=== PATIENT | male | born 1995 | race Caucasian/White ===

== ENCOUNTER 2018-11-12 19:33 | Emergency (ER) | payer OTHER, SELFPAY ==
[2018-11-12 19:34] VITALS: BP 115/71; PULSE 80; RESP 16; TEMP 37.9; O2SAT 99; BMI 22.4
--- NOTE | 2018-11-12 19:47 | EKG12_ITS ---
Test Reason : SOB Blood Pressure : / mmHG Vent. Rate : 066 BPM Atrial Rate : 066 BPM P-R Int : 166 ms QRS Dur : 110 ms QT Int : 386 ms P-R-T Axes : 059 081 056 degrees QTc Int : 404 ms Normal sinus rhythm with sinus arrhythmia Incomplete right bundle branch block Borderline ECG Confirmed by TAMMI HANDLEY, CHICA ([id number]), publication editor EILEEN MURPHY ([id number]) on 11/16/2018 11:41:54 AM Referred By: MICHAELLE Confirmed By:CHICA CADENA MD
--- NOTE | 2018-11-12 19:47 | RAD_ITS ---
HISTORY:CHEST TIGHTNESS, SOB X 2 DAYS CHEST TIGHTNESS, SOB X 2 DAYS EXAM: XR Chest 2 Views: COMPARISON: None FINDINGS: # of images incl. paperwork: 3 LINES/DEVICES: None. LUNGS: Radiographically clear. No consolidation, edema or effusion. No pneumothorax. MEDIASTINUM AND CARDIOVASCULAR STRUCTURES: Cardiac silhouette not enlarged. BONES AND SOFT TISSUES: Unremarkable. RAD/Chest PA and Lateral IMPRESSION: No radiographic evidence of acute cardiopulmonary disease. at 2012 Reported and signed by: Mariposa Griffin DO Electronically Signed: Mariposa Griffin DO at 20:11 EDT Tel , Service support ,
[2018-11-12 19:52] VITALS: BP 127/84; PULSE 72; RESP 14; TEMP 37.9; O2SAT 98
--- NOTE | 2018-11-12 19:52 | ED.RN ---
NO OLD EKGS
[2018-11-12 20:04] LABS: Absolute Lymphocyte Count 1.96 X10^3/uL (0.83-4.51); Absolute Neutrophil Count 4.6 X10^3/uL (2.0-7.7); Basophil# 0.01 X10^3/uL; Basophil% 0.1 % (0-1); Eosinophil# 0.11 X10^3/uL; Eosinophils% 1.4 % (0-5); Hematocrit 37.9 % (40-54); Lymphocyte # 1.96 X10^3/ul (4.0); Mean Corp Hgb Conc 34.3 g/dL (32-36); Mean Corpuscular Volume 90.2 fL (80-94); Mean Platelet Vol. 8.8 fl (6.2-12.0); Monocyte# 1.16 X10^3/uL; Monocyte% 14.8 % (0-10); NRBC Flagged by Analyzer 0 % (0-5); Neutrophil # 4.59 X10^3/uL (2.7-7.7); Neutrophil % 58.6 % (47-70); Platelet Count 203 K/mm3 (150-450); RBC Distribution Width CV 11.9 % (11.6-14.6); RBC Distribution Width SD 39.6 fl (35.1-43.9); White Blood Count 7.8 K/mm3 (4.4-11.0)
[2018-11-12 20:20] LABS: D-Dimer Quantitative (DVT/PE) 0.29 FEU/ug/m (0.27-0.49)
[2018-11-12 20:24] LABS: Anion Gap 4 (5-15); BUN 19 mg/dL (7-18); BUN/Creat Ratio 20.6 RATIO (10-20); Calcium,Total 8.8 mg/dL (8.5-10.1); Chloride 107 mmol/L (98-107); Creatinine, Serum 0.92 mg/dL (0.70-1.30); EST Glomerular Filtration Rate 108 mL/min (>60); Est Glom Filt Rate - Afr Amer 131 mL/min (>60); Estimated Creatinine Clearance 140.76 ml/min; Glucose 88 mg/dL (74-106); Potassium 3.9 mmol/L (3.5-5.1); Sodium Level 139 mmol/L (136-145)
--- NOTE | 2018-11-12 20:30 | ED.VISSUMM ---
- ER Visit Summary Date of Service: 11/12/18 Chief Complaint: Shortness of breath History of Present Illness: The patient is a 23 M who presents with shortness of breath. Is been ongoing for 2 days. On Friday he had a wisdom tooth pulled with only local anesthesia. After this he had pain in his back and on the right side of his chest. He has had a nonproductive cough. His temperature is 100.3 ?F today. Denies any leg swelling today. He is currently on amoxicillin after the dental extraction. He has no history of DVT or PE. He has no medical problems. Physical Examination: Vital signs reviewed. HEENT exam unremarkable. Heart is regular rate and rhythm without murmurs. Lungs are clear to auscultation. Abdomen is soft and nontender. Extremities reveal no edema. Peripheral pulses are equal. Skin exam normal. Neurologic exam normal. Test Results: EKG is sinus rhythm with a rate of 66. No ST changes. Chest x-ray normal. Laboratory studies normal. Troponin and d-dimer normal. Emergency Department Course and Treatment: The patient has normal labs. He was PERC negative. He has a normal work-up here. His symptoms could be due to pleurisy. Patient will be treated with naproxen at home. He will follow-up with his primary care physician. Treatment Plan: [] Disposition: Discharge Impression: Dyspnea This note was generated with [employer] dictation software. It may contain incorrect words, spelling, and punctuation that were not noted in review of the chart prior to signing ED Disposition - Plan for ED Patient: Referrals: Dwain Cole MD [Primary Care Provider] -
--- NOTE | 2018-11-12 20:33 | ED.DEP ---
ED Disposition - Plan for ED Patient: Disposition: Home or Assisted Living Instructions: ED Dyspnea Prescriptions: Naproxen [Naprosyn] 500 mg PO BID PRN #20 tab Prescription Printed Referrals: Dwain Cole MD [Primary Care Provider] -
[2018-11-12 21:02] VITALS: BP 116/75; PULSE 78; RESP 20; O2SAT 97
== END 2018-11-12 21:03 | disposition home or self-care (01) ==
PROVIDERS: Emergency Provider Emergency Medicine; Family Provider Family Medicine; PCP Family Medicine
DX: R06.02 Shortness of breath (principal)
CPT/HCPCS: 71046; 80048; 84484; 85025; 85379; 93005; 99284; A4216

== ENCOUNTER 2022-05-06 20:59 | Emergency (ER) | payer OTHER, SELFPAY ==
[2022-05-06 21:00] VITALS: BP 122/73; PULSE 78; RESP 18; TEMP 35.7; O2SAT 99; BMI 22.5
--- NOTE | 2022-05-06 22:20 | EDS_ITS ---
HPI History of Present Illness Chief Complaint: Laceration Informant: patient Narrative Narrative: Patient is a 26-year-old male that denies any past medical history presenting for tingling, pain and injury to his right forearm. Patient states he was using a saw earlier today and an X-[employer] knife that was seen on the shelf and up falling off the shelf and stabbing him in his right forearm. He states the wound himself is not too worried about but did seem to go deeper than it was white. Throughout the day he had increased pain especially started on 130 this afternoon. Became more severe around 6 PM. He states he could not even turn ignition of his car because it hurts so much in his forearm and hand. He also developed numbness and tingling of his hands as well as his forearm. It seems to be worse and his mom as well as the ulnar aspect of his forearm. Denies any other rash. Did take ibuprofen with some improvement of his pain. No other complaints at this time. States he just went to make sure it was checked out given the numbness. Tetanus Immunization: Unknown PFSH PFS Allergy/AdvReac Type Severity Reaction Status Date / Time No Known Allergies Allergy Verified 05/06/22 21:00 Social History Smoking Status: Never smoker ROS ROS ED Constitutional Constitutional ED: Denies chills or fever(s) Respiratory/Chest Respiratory/Chest: Denies cough Gastrointestinal Gastrointestinal: Denies nausea or vomiting Musculoskeletal Musculoskeletal: Reports other Details: Right forearm pain Integumentary Reports other Details: Laceration to dorsal aspect of the right forearm Neurologic Neurologic: Reports paresthesias Psychiatric Psychiatric: Denies anxiety Hematologic/Lymphatic Hematologic/Lymphatic: Denies easy bleeding or easy bruising EXAM Physical Exam Const Vital Signs: 05/06/22 21:00 Temperature 96.3 F L Temperature Source Temporal Pulse Rate 78 Respiratory Rate 18 Blood Pressure 122/73 H Blood Pressure Mean 89 Pulse Ox 99 Oxygen Delivery Method Room Air Positive well nourished and well developed General Appearance ED: well developed and NAD HEENT atraumatic Eyes PERRL and EOMs intact bilaterally Resp normal respiratory effort and clear to auscultation bilaterally Extremity full ROM Extremity Narrative: Mild tenderness palpation of the dorsal aspect of the distal wrist. Pain seems to be worse with flexion and extension of the wrist. As well as ulnar deviation of the wrist. Able to make a fist, okay sign, thumbs up and cross fingers as well as abduction a duct the fingers. No tenderness palpation of the elbow General Extremety ED: Negative for deformity or edema General Extremity: Negative for deformity or edema Neuro oriented x3, moves all extremities, no focal motor deficits and no sensory deficits noted Motor Exam: strength 5/5 throughout; Negative for muscle tone abnormal Skin Skin Narrative: 0.5 cm well approximated linear laceration to the dorsal aspect of the right distal forearm. Mild surrounding erythema consistent with localized irritation in but no associated warmth or lymphangitic streaking. No drainage appreciated. MDM MDM MDM Narrative Medical decision making narrative: Patient is evaluated for laceration to the right forearm and then developing subsequent significant pain of the forearm and hand. Currently has a normal neurologic exam. I suspect the laceration with deeper and there is more ir ritation of the body of the muscle, possibly the brachial radialis muscle. I suspect this laceration is causing increased irritation and some swelling is causing the paresthesias. Given that his symptoms improved with NSAIDs and he has a normal neurologic exam at this time I do not think further advanced imaging are indicated. His compartments are soft and I do not think this is compartment syndrome. Its been well over 12 hours since the laceration and the wound itself is small and well approximated so I do not think further laceration repair is indicated. Tetanus will be updated, wound is cleansed and Steri- Strips are applied. Patient given return precautions including signs of infection as well as compartment syndrome. He verbalizes agreement understands plan. He is offered NSAIDs in the ER but declines. Patient states he will take NSAIDs at home and does not require prescription. At this time does not seem like this was a dirty wound and I do not think empiric antibiotics are indicated. 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 Patient verbalized agreement understand this plan. Discharged home in stable condition. Discharge Plan Triage Chief Complaint: Laceration ED Provider: Erna Yates Dx/Rx/DC Orders Clinical Impression: Laceration of forearm, right, Paresthesias in right hand Instructions: ED Laceration Small or ..., ED Paraesthesias Primary Care Provider: Dwain Cole Referrals: Dwain Cole MD [Primary Care Provider] - Activity Restrictions/Additional Instructions: Alternate ibuprofen and Tylenol as needed for pain. Ice the area. If you have increased pain, firmness closer to your elbow and your forearm or worsening redness/drainage please return to the emergency room. At this time I suspect the body of the muscle in your forearm became irritated and started to swell causing your symptoms earlier today. Disposition Disposition: Home, Self Care
[2022-05-06] MEDS: Diphth,Pertuss(Acell),Tet Vac 0.5 ML Vial IM (22:39)
== END 2022-05-06 22:45 | disposition home or self-care (01) ==
PROVIDERS: Emergency Provider Emergency Medicine; PCP Family Medicine; Visit Provider Emergency Medicine
DX: S51.811A Laceration without foreign body of right forearm, initial encounter (principal); R20.2 Paresthesia of skin; Z23 Encounter for immunization; X58.XXXA Exposure to other specified factors, initial encounter
CPT/HCPCS: 90715; 96372; 99282